=== PATIENT | male | born 1960 | race Caucasian/White ===

== ENCOUNTER 2024-09-12 12:19 | Outpatient (CLI) | payer OTHER ==
[~2024-09-12] VITALS: Ht 182.9 cm; Wt 145.1 kg
[2024-09-12] MEDS: albuterol 2.5 MG/3 ML nebule NEB ONE (13:01)
[2024-09-12 13:03] VITALS: PULSE 67; RESP 18; O2SAT 94
[2024-09-12 13:15] VITALS: PULSE 69; RESP 16
== END 2024-09-12 23:59 | disposition home or self-care (01) ==
LOC: RT 12:19
PROVIDERS: ATTEND Chiropractor
DX: J61 Pneumoconiosis due to asbestos and other mineral fibers (principal); J45.909 Unspecified asthma, uncomplicated
CPT/HCPCS: 71046; 94060; 94760